=== PATIENT | female | born 1970 | race Caucasian/White ===

== ENCOUNTER 2016-07-24 10:15 | Emergency (ER) | payer OTHER ==
[2016-07-24 10:18] VITALS: BP 144/78; PULSE 80; RESP 16; TEMP 97.8; O2SAT 98
[2016-07-24 10:26] VITALS: BP 163/90; PULSE 88; RESP 16; O2SAT 98
[2016-07-24] MEDS ORDERED: SODIUM CHLOR 0.9% 1000 ML INJ 1,000 ML IV ONE (10:37)
[2016-07-24] MEDS ORDERED: HYDR-3288 PO (10:38)
[2016-07-24 10:41] VITALS: RESP 16; O2SAT 98
--- NOTE | 2016-07-24 10:43 | PD ---
HPI Chief Complaint: Neuro Symptoms/ Deficits Time Seen by Provider: 10:24 Travel History International Travel<30 days: No Contact w/Intl Traveler<30days: No Traveled to known affect area: No History of Present Illness HPI Is a well 46-year-old man who presents to the emergency department complaining of concern for seizures. She had meningitis as an infant. As a child she has what sounds like absence Seizures up until about Age [age]. She's Not Had Any Problems since Then. Last Night She Developed an Episode Where She [place] like She Could Not Move or Talk. She Was Laying down at the Time, Preparing to Go to Sleep. She also states she could not talk to get words out. She was conscious. This lasted just about 10 or 15 seconds. This morning she has a second episode where she states a coworker described her as now, being unresponsive, with slurred speech, abruptly resolving again after 10-15 seconds. She has been under a lot of stress at work. She drinks 15 hours drink each morning, occasionally a coffee later in the day, but no change in her caffeine intake. She has chronic back pain and takes Norcuron 3 times daily as prescribed, but does not use any other illicit drugs. She otherwise had been feeling generally well and healthy. History Past Medical History Narrative Medical seizures as a child chronic back pain : 4 Para: 4 Dilation and Curettage (D&C): Yes Social History Alcohol Use: Yes (OCC) Tobacco Use: Yes (3 CIGARETTES) Allergies-Medications (Allergen,Severity, Reaction): Coded Allergies: No Known Allergies (Verified , 07/24/16) Reported Meds & Prescriptions Reported Meds & Active Scripts Active Reported [place] (Hydrocodone-Acetaminophen) 7.5-325 mg Tab 1 Tab PO TID Review of Systems Except as stated in HPI: all other systems reviewed are Neg Physical Exam Narrative GENERAL: 46-year-old woman, no acute distress. SKIN: Warm and dry. HEAD: Atraumatic. Normocephalic. CARDIOVASCULAR: Regular rate and rhythm. No murmur appreciated. RESPIRATORY: No accessory muscle use. Clear to auscultation. Breath sounds equal bilaterally. GASTROINTESTINAL: Abdomen soft, non-tender, nondistended. Hepatic and splenic margins not palpable. MUSCULOSKELETAL: No obvious deformities. No clubbing. No cyanosis. No edema. NEUROLOGICAL: Awake and alert. No obvious cranial nerve deficits. Motor grossly within normal limits. Normal speech. PSYCHIATRIC: Appropriate mood and affect; insight and judgment normal. Data Data Last Documented VS Vital Signs Date Time Temp Pulse Resp B/P Pulse Ox O2 Delivery O2 Flow Rate FiO2 07/24/16 10:41 16 98 Room Air 07/24/16 10:26 88 163/90 07/24/16 10:18 97.8 Orders Electrocardiogram (07/24/16 ) Complete Blood Count With Diff (07/24/16 10:37) Ct Brain W/O Iv Contrast(Rout) (07/24/16 ) Blood Glucose (07/24/16 10:37) Ecg Monitoring (07/24/16 10:37) Iv Access Insert/Monitor (07/24/16 10:37) Oximetry (07/24/16 10:37) Comprehensive Metabolic Panel (07/24/16 10:37) Sodium Chlor 0.9% 1000 Ml Inj (Ns 1000 M (07/24/16 10:37) Sodium Chloride 0.9% Flush (Ns Flush) (07/24/16 10:45) Ua Includes Microscopic (07/24/16 10:37) Ed Urine Pregnancytest Poc (07/24/16 10:37) Labs Laboratory Tests Test 07/24/16 07/24/16 10:00 10:50 White Blood Count 7.8 TH/MM3 Red Blood Count 4.41 MIL/MM3 Hemoglobin 13.6 GM/DL Hematocrit 40.2 % Mean Corpuscular Volume 91.2 FL Mean Corpuscular Hemoglobin 30.9 PG Mean Corpuscular Hemoglobin 33.9 % Concent Red Cell Distribution Width 12.7 % Platelet Count 251 TH/MM3 Mean Platelet Volume 9.6 FL Neutrophils (%) (Auto) 70.3 % Lymphocytes (%) (Auto) 20.6 % Monocytes (%) (Auto) 5.6 % Eosinophils (%) (Auto) 2.9 % Basophils (%) (Auto) 0.6 % Neutrophils # (Auto) 5.5 TH/MM3 Lymphocytes # (Auto) 1.6 TH/MM3 Monocytes # (Auto) 0.4 TH/MM3 Eosinophils # (Auto) 0.2 TH/MM3 Basophils # (Auto) 0.0 TH/MM3 CBC Comment DIFF FINAL Differential Comment Sodium Level 141 MEQ/L Potassium Level 3.7 MEQ/L Chloride Level 108 MEQ/L Carbon Dioxide Level 27.5 MEQ/L Anion Gap 6 MEQ/L Blood Urea Nitrogen 14 MG/DL Creatinine 0.62 MG/DL Estimat Glomerular Filtration 103 ML/MIN Rate Random Glucose 94 MG/DL Calcium Level 8.8 MG/DL Total Bilirubin 0.3 MG/DL Aspartate Amino Transf 14 U/L (AST/SGOT) Alanine Aminotransferase 28 U/L (ALT/SGPT) Alkaline Phosphatase 50 U/L Total Protein 7.3 GM/DL Albumin 4.1 GM/DL Urine Color LIGHT-YELLOW Urine Turbidity CLEAR Urine pH 6.5 Urine Specific [place] 1.010 Urine Protein NEG mg/dL Urine Glucose (UA) NEG mg/dL Urine Ketones NEG mg/dL Urine Occult Blood SMALL Urine Nitrite NEG Urine Bilirubin NEG Urine Urobilinogen LESS THAN 2.0 MG/DL Urine Leukocyte Esterase NEG Urine RBC 6 /hpf Urine Squamous Epithelial 1 /hpf Cells MDM Medical Decision Making Medical Screen Exam Complete: Yes Emergency Medical Condition: Yes Interpretation(s) My review of EKG: Normal sinus rhythm at a rate of 69, normal axis, normal intervals, no ischemia. LABS: CBC is unremarkable. CMP is unremarkable. UA with minimal hematuria. Head CT: Normal examination. Differential Diagnosis Seizures, Anxiety Disorder, Tumor Mass, or Joint Abnormality, Occult Infection Narrative Course Medical decision making INITIAL: This Is a 46-year-old woman who presents to the emergency department complaining of discrete episodes of altered consciousness,, possibly absence seizure's. She is a history of it as a child but nothing recently. No clear precipitants. She has been under a lot of stress and symptoms may be related to anxiety, but seems less likely. We'll check labs, CT, discussed with neurology. Likely outpatient follow-up for MRI and EEG. Diagnosis Primary Impression: Seizures Referrals: Amauri Melton PhD MD 1 week Patient Instructions: General Instructions Additional Instructions: Take Keppra prescribed. Follow-up with Dr. Melton. Do not drive or operate heavy machinery until cleared by neurology. You should avoid being in any situation where if you had a seizure it could be dangerous such as swimming, looking on a ladder, or other such activities. Return to the emergency department for any seizures lasting more than 5 minutes , [id number] seizures, or seizures with prolonged confusion afterwards. Med/Other Pt SpecificInfo: Prescription(s) given Scripts Levetiracetam (Keppra)500 Mg Mpr660 Mg PO BID #60 TAB Ref 0 Prov:Vishal Keyes MD 07/24/16 Disposition: 01 DISCHARGE HOME Condition: Stable Vishal Keyes MD Jul 24, 2016 10:43
[2016-07-24] MEDS ORDERED: SODIUM CHLORIDE 0.9% FLUSH 5 ML FLUSH IVF PRN (10:45)
[2016-07-24 11:00] VITALS: BP 130/60; PULSE 76; RESP 16; O2SAT 97
[2016-07-24 11:03] LABS: AUTOMATED NEUTROPHIL # 5.5 TH/MM3 (1.8-7.7); BASOPHIL % 0.6 % (0.0-2.0); EOSINOPHIL # 0.2 TH/MM3 (0-0.4); EOSINOPHIL % 2.9 % (0.0-4.0); HEMATOCRIT 40.2 % (35.0-46.0); HEMO FLAGS DIFF FINAL; LYMPH % 20.6 % (9.0-44.0); LYMPHOCYTE # 1.6 TH/MM3 (1.0-4.8); MEAN CELL VOLUME 91.2 FL (80.0-100.0); MEAN CORPUSCULAR HEMOGLOBIN 30.9 PG (27.0-34.0); MEAN CORPUSCULAR HGB CONC 33.9 % (32.0-36.0); MONO % 5.6 % (0.0-8.0); NEUT % 70.3 % (16.0-70.0); PLATELET COUNT 251 TH/MM3 (150-450); RED BLOOD COUNT 4.41 MIL/MM3 (4.00-5.30); RED CELL DISTRIBUTION WIDTH 12.7 % (11.6-17.2); WHITE BLOOD COUNT 7.8 TH/MM3 (4.0-11.0)
[2016-07-24 11:18] LABS: BLOOD, URINE SMALL (NEG); GLUCOSE,URINE NEG (NEG); KETONE, URINE NEG (NEG); NITRITE,URINE NEG (NEG); PH, URINE 6.5 (5.0-8.5); SQUAMOUS EPITHELIAL CELL URINE 1 /hpf (0-5); URINE COLOR LIGHT-YELLOW (YELLW/STRAW)
[2016-07-24 11:25] LABS: ALT (GPT) 28 U/L (10-53); ANION GAP 6 MEQ/L (5-15); AST (GOT) 14 U/L (15-37); BICARBONATE 27.5 MEQ/L (21.0-32.0); BLOOD UREA NITROGEN 14 MG/DL (7-18); CHLORIDE 108 MEQ/L (98-107); GLOMERULAR FILTRATION RATE 103 ML/MIN (>89); POTASSIUM 3.7 MEQ/L (3.5-5.1); SODIUM (NA) 141 MEQ/L (136-145)
[2016-07-24 11:27] LABS: ALKALINE PHOSPHATASE 50 U/L (45-117); TOTAL BILIRUBIN ADULT 0.3 MG/DL (0.2-1.0)
--- NOTE | 2016-07-24 11:29 | RADRPT ---
EXAM DATE/TIME: 07/24/2016 11:22 [facility] COMPARISON: No previous studies available for comparison. INDICATIONS : Possible seizure. RADIATION DOSE: 40.87 CTDIvol (mGy) MEDICAL HISTORY : None SURGICAL HISTORY : Tubal ligation. ENCOUNTER: Initial ACUITY: 1 day PAIN SCALE: 0/10 LOCATION: cranial TECHNIQUE: Multiple contiguous axial images were obtained of the head. Using automated exposure control and adj ustment of the mA and/or kV according to patient size, radiation dose was kept as low as reasonably a chievable to obtain optimal diagnostic quality images. FINDINGS: CEREBRUM: The ventricles are normal for age. No evidence of midline shift, mass lesion, hemorrhage or acute in farction. No extra-axial fluid collections are seen. POSTERIOR FOSSA: The cerebellum and brainstem are intact. The 4th ventricle is midline. The cerebellopontine angle i s unremarkable. EXTRACRANIAL: The visualized portion of the orbits is intact. SKULL: The calvaria is intact. No evidence of skull fracture. CONCLUSION: Normal examination for a patient of this age. Ramesh Blount MD on July 24, 2016 at 11:26 Board Certified Radiologist. This report was verified electronically.
[2016-07-24] MEDS ORDERED: LEVE500 PO (11:41)
[2016-07-24 12:00] VITALS: BP 120/81; PULSE 58; RESP 16; O2SAT 97
--- NOTE | 2016-07-24 19:17 | EKG ---
Date Performed: 07/24/2016 Time Performed: 10:43:41 PTAGE: 46 years EKG: Sinus rhythm NORMAL ECG PREVIOUS TRACING : 02/27/2015 21.39 DOCTOR: Dante Maldonado Interpretating Date/Time 07/24/2016 19:15:29
== END 2016-07-24 12:28 | disposition home or self-care (01) ==
LOC: NEPC 10:15
DX: R56.9 Unspecified convulsions (principal)
CPT/HCPCS: 70450; 80053; 81001; 84703; 85025; 93005; 96360; 99285; J7030